=== PATIENT | male | born 1990 | race Caucasian/White ===

== ENCOUNTER 2020-06-28 19:48 | Emergency (ER) | payer MEDICAID ==
[~2020-06-28] VITALS: Ht 172.7 cm; Wt 63.0 kg
[2020-06-28 19:55] VITALS: BP 103/38
--- NOTE | 2020-06-28 21:03 | NUR ---
installer technician doing ortho orders
== END 2020-06-28 21:19 | disposition home or self-care (01) ==
LOC: ER 19:48
DX: S60.911A Unspecified superficial injury of right wrist, initial encounter (principal); W51.XXXA Accidental striking against or bumped into by another person, initial encounter; Y93.89 Activity, other specified; Y92.89 Other specified places as the place of occurrence of the external cause; Y99.8 Other external cause status
CPT/HCPCS: 29105; 73110; 73130; 99284